=== PATIENT | male | born 1970 | race Caucasian/White ===

== ENCOUNTER 2022-06-06 10:41 | Outpatient (CLI) | payer BC, SELFPAY ==
[2022-06-06 22:38] LABS: Chloride* 103 mmol/L (96-114); Potassium* 4.5 mmol/L (3.6-5.1); Sodium* 143 mmol/L (135-149)
[2022-06-06 22:40] LABS: Alkaline Phosphatase* 45 U/L (40-150); Aspartate Amino Transferase* 36 U/L (12-35); Bilirubin Total* 0.8 mg/dL (0.1-1.5); Blood Urea Nitrogen* 10 mg/dL (7-30); Carbon Dioxide* 30 mmol/L (20-32); Cholesterol* 267 mg/dL (90-199); Creatinine* 0.8 mg/dL (0.5-1.5); Estimated Glomerular Filt Rate 106 ml/min; Total Protein* 8.1 g/dL (6.0-8.3)
[2022-06-06 22:41] LABS: Alanine Aminotransferase* 37 U/L (4-50); Calcium* 9.8 mg/dL (8.4-10.6); Glucose* 95 mg/dL (60-115); HDL Cholesterol* 82 mg/dL (>=40); LDL Cholesterol Calculated 175 mg/dL (<100); Triglycerides* 51 mg/dL (40-149)
[2022-06-06 23:05] LABS: PSA Screen* 0.33 ng/mL (0.10-4.00)
[2022-06-06 23:23] LABS: Hepatitis C Virus Antibody* Negative (Negative)
[2022-06-06 23:25] LABS: Vitamin B12* 175 pg/mL (243-894)
== END 2022-06-06 10:42 | disposition home or self-care (01) ==
PROVIDERS: PCP Family Medicine; Visit Provider Family Medicine
DX: Z00.00 Encounter for general adult medical examination without abnormal findings (principal); R03.0 Elevated blood-pressure reading, without diagnosis of hypertension; R20.2 Paresthesia of skin; Z12.5 Encounter for screening for malignant neoplasm of prostate; Z11.59 Encounter for screening for other viral diseases; Z13.6 Encounter for screening for cardiovascular disorders
CPT/HCPCS: 80053; 80061; 82607; 82746; 84153; 86803

== ENCOUNTER 2022-06-20 14:00 | Outpatient (RCR) | payer BC, SELFPAY | END 2022-08-22 14:47 | disposition home or self-care (01) | PROVIDERS: PCP Family Medicine; Visit Provider Family Medicine | DX: M54.6 Pain in thoracic spine (principal); M54.50 Low back pain, unspecified; M25.551 Pain in right hip; M25.552 Pain in left hip; R20.0 Anesthesia of skin; Z51.89 Encounter for other specified aftercare | CPT/HCPCS: 97110; 97161 ==

== ENCOUNTER 2022-06-30 10:34 | Outpatient (CLI) | payer BC, SELFPAY | END 2022-06-30 10:35 | disposition home or self-care (01) | PROVIDERS: PCP Family Medicine; Visit Provider Surgery | DX: Z12.11 Encounter for screening for malignant neoplasm of colon (principal); K63.5 Polyp of colon | CPT/HCPCS: 45385; 88305; 99153; J1200; J2250; J3010 ==